=== PATIENT | female | born 1985 | race Caucasian/White ===

== ENCOUNTER 2017-11-09 18:45 | Outpatient (CLI) | payer OTHER ==
[2017-11-09 20:08] LABS: ADD UMIC NO; UR ASCORBIC ACID NEGATIVE (NEGATIVE); UR BACTERIA MANY /HPF (NONE SEEN); UR BILIRUBIN (Dip) NEGATIVE (NEGATIVE); UR BLOOD (Dip) NEGATIVE (NEGATIVE); UR CLARITY SLIGHTLY CLOUDY (CLEAR); UR COLOR YELLOW (YELLOW); UR GLUCOSE (Dip) 2+ mg/dL (NEGATIVE); UR KETONES (Dip) NEGATIVE (NEGATIVE); UR LEUKOCYTE ESTERASE (Dip) NEGATIVE Leu/ul (NEGATIVE); UR NITRITE (Dip) NEGATIVE (NEGATIVE); UR RBC 2 /HPF (0-5); UR SPECIFIC GRAVITY (Dip) 1.005 (1.003-1.030); UR TOTAL PROTEIN (Dip) NEGATIVE (NEGATIVE); UR UROBILINOGEN (Dip) NEGATIVE (NEGATIVE); UR WBC 5 /HPF (0-5)
[2017-11-09] MEDS ORDERED: TERBUTALINE 1 ML (20:59)
[2017-11-09] MEDS: TERBUTALINE 1 MG/ML INJ SC (21:04)
== END 2017-11-09 22:42 | disposition home or self-care (01) ==
LOC: OBT 18:45 → L-D 18:45 → OBT 22:42
DX: O62.9 Abnormality of forces of labor, unspecified (principal); O26.892 Other specified pregnancy related conditions, second trimester; M54.5 Low back pain; O34.219 Maternal care for unspecified type scar from previous cesarean delivery; Z3A.27 27 weeks gestation of pregnancy
CPT/HCPCS: 76817; 81001; 81003

== ENCOUNTER 2018-10-31 02:58 | Emergency (ER) | payer OTHER ==
[2018-10-31] MEDS: ONDANSETRON (ODT) 4 MG TAB ODT (04:36)
== END 2018-10-31 05:22 | disposition home or self-care (01) ==
LOC: FTE 02:58
DX: K52.9 Noninfective gastroenteritis and colitis, unspecified (principal); E03.9 Hypothyroidism, unspecified
CPT/HCPCS: 99283; Z7502